=== PATIENT | female | born 1970 | race Two or more races ===

== ENCOUNTER 2018-09-28 18:43 | Emergency (ER) | payer OTHER ==
[~2018-09-28] VITALS: Ht 162.6 cm; Wt 77.1 kg
[2018-09-28 18:53] VITALS: Ht 162.6 cm; Wt 77.1 kg
[2018-09-28 20:32] VITALS: BP 120/60
== END 2018-09-28 20:32 | disposition home or self-care (01) ==
LOC: ED 18:43
DX: S91.202A Unspecified open wound of left great toe with damage to nail, initial encounter (principal); S90.112A Contusion of left great toe without damage to nail, initial encounter; W22.8XXA Striking against or struck by other objects, initial encounter; Y93.89 Activity, other specified; Y92.89 Other specified places as the place of occurrence of the external cause; Y99.8 Other external cause status
CPT/HCPCS: Q0092

== ENCOUNTER 2018-09-29 14:48 | Emergency (ER) | payer OTHER ==
[~2018-09-29] VITALS: Ht 170.2 cm; Wt 78.5 kg
[2018-09-29 14:58] VITALS: Ht 170.2 cm; Wt 78.5 kg
[2018-09-29 17:00] VITALS: BP 108/63
== END 2018-09-29 17:00 | disposition home or self-care (01) ==
LOC: ED 14:48
DX: S90.112A Contusion of left great toe without damage to nail, initial encounter (principal); W22.8XXA Striking against or struck by other objects, initial encounter; Y93.89 Activity, other specified; Y92.89 Other specified places as the place of occurrence of the external cause; Y99.8 Other external cause status

== ENCOUNTER 2019-05-18 13:37 | Emergency (ER) | payer OTHER ==
[~2019-05-18] VITALS: Ht 170.2 cm; Wt 77.1 kg
[2019-05-18 13:43] VITALS: Ht 170.2 cm; Wt 77.1 kg
[2019-05-18 15:34] VITALS: BP 130/74
== END 2019-05-18 15:34 | disposition home or self-care (01) ==
LOC: ED 13:37
DX: M79.675 Pain in left toe(s) (principal); M32.9 Systemic lupus erythematosus, unspecified